=== PATIENT | male | born 1940 | race Caucasian/White ===

== ENCOUNTER → 2016-09-15 | Outpatient (CLI) | payer OTHER, MEDICARE ==
[2016-09-15 08:34] LABS: BASOPHILS # (AUTO) 0.02 10*3/UL; EOSINOPHILS # (AUTO) 0.12 10*3/UL; HEMATOCRIT 45.8 % (42.0-52.0); HEMOGLOBIN 15.2 g/dL (14.0-18.0); LYMPHOCYTES # (AUTO) 1.24 10*3/uL; MEAN CORPUSCULAR HEMOGLOBIN 33.6 PG (27-31); MEAN CORPUSCULAR HGB CONC 33.2 g/dL (33-37); MEAN CORPUSCULAR VOLUME 101.3 FL (80-90); MEAN PLATELET VOLUME 10.3 FL (7.4-12.2); MONOCYTES # (AUTO) 0.25 10*3/UL (0.3-0.8); MONOCYTES % (AUTO) 12.4 % (5-15); NEUTROPHILS # (AUTO) 0.36 10*3/UL; NEUTROPHILS % (AUTO) 17.9 % (50-80); RED BLOOD COUNT 4.52 10^6/uL (4.70-6.10)
[2016-09-15 08:46] LABS: PLATELET MORPHOLOGY COMMENT NORMAL MORPHOLOGY (NORM); RBC MORPHOLOGY COMMENT NORMAL MORPHOLOGY (NORM); WBC MORPHOLOGY COMMENT NORMAL MORPHOLOGY (NORM)
[2016-09-15 08:55] LABS: BUN/CREATININE RATIO 15.55 (6-20); CALCIUM 8.7 mg/dL (8.7-10.7); CHOL/HDL RATIO 3.6 RATIO (0-4.0); LDL CHOLESTEROL,CALCULATED 90.6 mg/dL; SERUM ALBUMIN 4.2 g/dL (3.5-4.8)
[2016-09-15 09:00] LABS: BILIRUBIN,URINE NEGATIVE (NEG); COLOR,URINE YELLOW; GLUCOSE, URINE (UA) NEGATIVE (NEG); NITRATE,URINE NEGATIVE (NEG); OCCULT BLOOD,URINE NEGATIVE (NEG); PH,URINE 7.5 (5.0-8.5); UROBILINOGEN,URINE 0.2 mg/dL (0.2)
[2016-09-15 09:03] LABS: CLARITY,URINE CLEAR (CLEAR); PROTEIN,URINE NEGATIVE (NEG); RBC,URINE 0 /hpf; URINE SAMPLE TYPE CLEAN CATCH URINE; WBC,URINE 0-1
[2016-09-15 09:04] LABS: SQUAMOUS EPITHELIAL CELL,UR RARE
[2016-09-15 09:13] LABS: VITAMIN D 25-HYDROXY 33.5 NG/ML (30-100)
== END ==
LOC: LAB 08:10
DX: I10 Essential (primary) hypertension (principal); C61 Malignant neoplasm of prostate; D72.820 Lymphocytosis (symptomatic); E55.9 Vitamin D deficiency, unspecified; Z13.6 Encounter for screening for cardiovascular disorders
CPT/HCPCS: 36415; 80053; 80061; 81001; 82306; 84153; 84443; 85025

== ENCOUNTER → 2016-09-16 | Outpatient (CLI) | payer OTHER, MEDICARE | LOC: MMPC 09:00 | DX: D72.820 Lymphocytosis (symptomatic) (principal); C61 Malignant neoplasm of prostate; E55.9 Vitamin D deficiency, unspecified; I10 Essential (primary) hypertension | CPT/HCPCS: 99213; G0463 ==

== ENCOUNTER → 2016-12-13 | Outpatient (CLI) | payer OTHER, MEDICARE | LOC: MMPC 11:11 | PROVIDERS: ATTEND Surgery | DX: K42.9 Umbilical hernia without obstruction or gangrene (principal) | CPT/HCPCS: 99213; G0463 ==

== ENCOUNTER 2016-12-15 10:07 | Day surgery (SDC) | payer OTHER, MEDICARE ==
[~2016-12-15 10:07] MED LIST: LIDOCAINE W/ SODIUM BICARB 0.5 ML SYR ONE; Lactated Ringers 1,000 ML PRIMARY IV ONE; MIDAZOLAM 5 MG/1 ML ONE; ceFAZolin Inj 2gm (Premix) 50 ML IV ONE; fentaNYL Inj 100 MCG/2 ML VIAL ONE
[2016-12-15] MEDS ORDERED: BUPivacaine Inj 0.5% PF (5mg/ml) 10ml vial ONE ×2 (11:43→12:10)
[2016-12-15] MEDS ORDERED: Lidocaine Inj 1% 20 ML ONE (11:43)
[2016-12-15] MEDS ORDERED: GLYCOPYRROLATE 0.2 MG/1 ML VIAL ONE (11:56)
[2016-12-15] MEDS ORDERED: KETOROLAC 30 MG/1 ML VIAL ONE (12:23)
[2016-12-15] MEDS ORDERED: BUPivacaine Liposome/PF (Exparel) Inj 20ml vial INFIL ONE (12:30)
[2016-12-15] MEDS ORDERED: NORMAL SALINE 10 ML SYRINGE FLUSH IVP PRN (12:41)
[2016-12-15] MEDS ORDERED: MORPHINE SULFATE 2 MG/1 ML IVP PRN (12:41)
[2016-12-15] MEDS ORDERED: KETOROLAC 15 MG/1 ML VIAL IVP ONE (12:41)
[2016-12-15] MEDS ORDERED: ONDANSETRON 4 MG/2 ML VIAL IVP PRN (12:41)
--- NOTE | 2016-12-15 12:41 | GEN.OPNOTE ---
Operative Note Surgery Date: 12/15/16 Preoperative Diagnosis: Umbilical hernia Postoperative Diagnosis: Umbilical hernia Procedure: Umbilical herniorrhaphy Surgeon: Bart Mahan MD Anesthesia Provider: Neyda Franks CRNA Anesthesia Type: Local, MAC Estimated Blood Loss (mL): 1 Fluids: 2 g of Ancef. Lactated Ringer's please see anesthesia notes in EMR Pathology: Nothing sent Indications: Symptomatic umbilical hernia Findings: Preperitoneal fat herniating through a small defect Operative Summary: Patient is brought in the operating room. Placed supine position. Given IV sedation. Prepped draped sterile fashion. Timeout performed per protocol. Infiltrated quarter percent Marcaine with epinephrine for pain control. A small incision was made below the umbilicus. Hemostased obtained electrocautery. The skin of the umbilicus was dissected off the fascia the umbilicus with electrocautery. The contents of the hernia reduced. I did excise the hernia sac. I freshened up the fascial edges with electrocautery. Defect a small left can be primarily closed with 2 simple interrupted sutures using 0 Prolene. Skin umbilicus was tacked down to the fascia using 2-0 Vicryl suture. Skin reapproximated using 4-0 Vicryl simple interrupted septic restitch. Steri-Strips applied sterile dressings applied. I did infiltrate proximally 10 mL of Exoprel into the surgical site for postoperative pain control. Patient transferred recovery room in stable condition
[2016-12-15 14:24] VITALS: TEMP 98.2
[2016-12-15 14:39] VITALS: RESP 14
== END 2016-12-15 14:15 | disposition home or self-care (01) ==
LOC: SDSC 10:07
PROVIDERS: ATTEND Surgery
DX: K42.9 Umbilical hernia without obstruction or gangrene (principal)
CPT/HCPCS: 49585; C9290; J0690; J1885; J2704; J3010; J2001; J2250; J3490; J7120

== ENCOUNTER → 2016-12-23 | Outpatient (CLI) | payer OTHER, MEDICARE | LOC: MMPC 11:11 | PROVIDERS: ATTEND Surgery | DX: K42.9 Umbilical hernia without obstruction or gangrene (principal) ==

== ENCOUNTER 2017-07-25 10:59 | Inpatient (IN) ==
--- NOTE | 2017-07-25 11:27 | PDOC ---
Abdomen/Flank HPI - General Chief Complaint: Abdomen Pain Stated Complaint: NO BM FOR TWO DAYS Date Seen by Provider: 07/25/17 Time Seen by Provider: 11:10 Source: POSITIVE: Patient Exam Limitations: POSITIVE: No limitations Nurse's Notes Reviewed & Considered: Yes - History of Present Illness Initial Comments: This is a well-developed, well-nourished, fit-appearing 77-year-old male with complaints of constipation. Patient has three-day history of no bowel movement. He contacted his primary care provider today who directed him to come to the emergency department because of his complaints of constipation and pressure in his pelvis. Patient states he has had no bowel movement for 3 days but has had mucus being passed. He denies any blood in his stools, no recent changes in his bowel habitus. At this time he denies any fever chills or sweats , no headache, no sore throat, no chest pain or shortness of breath, no nausea vomiting or diarrhea, no hematuria or dysuria, no rashes, no ataxia or focal localizing neurological deficits. Body Location Affected: REPORTS: Abdomen Timing: REPORTS: Gradual Duration: <1 week Severity: Mild Quality: REPORTS: Fullness, "Pain", Pressure Abdominal Pain Onset Location: REPORTS: Other (Perianal and pelvic pressure) Abdominal Pain Radiation: REPORTS: No radiation Context: REPORTS: None Modifying Factors: improves with: Nothing Associated Symptoms: REPORTS: Constipation Similar Symptoms Previously: No Recent Care Received: REPORTS: Denies Any Prior Injuries Related to Current Complaint?: No - Patient Home Medications Home Medications: Home Medications Calcium Carbonate/Vitamin D3 [Calcarb 600 with Vit D Tab] 1 tab PO QD #30 Cyanocobalamin (Vitamin B-12) [B-12] 1 tab SL DAILY tab 05/10/13 Psyllium Seed [Metamucil] 2 tsp PO DAILY sc 05/10/13 Cholecalciferol (Vitamin D3) [Vitamin D3] 1 tab PO QD #30 tab 11/25/14 Folic Acid 1 tab PO DAILY tab 12/23/16 tamsulosin 0.4 mg capsule 0.4 mg PO QDAY #90 cap 04/11/17 - Patient Allergies Allergies/Adverse Reactions: Allergies 3 Allergy/AdvReac Type Severity Reaction Status Date / Time hydrocodone Allergy Intermediate NAUSEA Verified 07/25/17 11:10 Past Medical History - heen Additional HEENT History: DETACHED RETINA Cardiovascular History: Arrhythmia Additional Cardiovasular History: HX OF PVC'S none for months Respiratory History: Denies History Gastrointestinal History: Hiatal Hernia Additional Gastrointestinal History: ADENOMATIOUS COLON POLYP Genitourinary History: Denies History Endocrine History: Denies History Musculoskeletal History: Arthritis Neurological History: Denies History Blood Disorders: Denies History Psychiatric History: Denies History History of Sexually Transmitted Diseases: No History of MDRO: No History of Other Communicable Diseases: Yes (SCARLET FEVER) Alcohol Use: Occasionally In the Past 12 Months, Have Used or Abuse Any Substance: None Previous Surgical History: Yes Type / Date of Surgery: BONE MARROW BX/ BILAT CATARACT EXT/ COLONOSCOPY X 2/ I& D CYST ON BACK/ MACULAR DETACHMENT/ TONSILLECTMY Anesthesia Reactions: No Malignant Hyperthermia: No Significant Family History: Cancer Additional Family History: MOTHER-CA DEMENTIA ROS Constitution: REPORTS: Denies Symptoms Cardiovascular: REPORTS: Denies Cardiac Symptoms Respiratory: REPORTS: Denies Resp Symptoms Neurological: REPORTS: Denies Neuro Symptoms Gastrointestinal: REPORTS: Abdominal Pain, Constipation Endocrine: REPORTS: Denies Symptoms Musculoskeletal: REPORTS: Denies MS Symptoms Genitourinary: REPORTS: Denies Symptoms Eyes: REPORTS: Denies Symptoms ENT: REPORTS: Denies Symptoms Skin: REPORTS: Denies Skin Symptoms Lympathic: REPORTS: Denies Lympathic Symptoms Immunologic: POSITIVE: Denies Symptoms Psychiatric: POSITIVE: Denies Psych Symptoms Abdominal/Flank Pain PE - General Appearance General Appearance: POSITIVE: Alert, Cooperative, No Acute Distress, No Evidence of Trauma - HEENT HEENT: POSITIVE: Head Inspection Nml, Eyes Inspection Nml, Ears Inspection Nml, Nose Inspection Nml, Oral/Dental Inspect. Nml, Pharynx Inspect. Nml, PERRL, EOMI - Neck Neck: POSITIVE: Normal Inspection, No Apparent Injury - Respiratory Respiratory: POSITIVE: No Respiratory Distress, Breath Sounds Normal, Chest Non- Tender - Cardiovascular Cardiovascular: POSITIVE: Regular Rate and Rhythm, Heart Sounds Normal, Strong Pulses Peripheral Pulses: Radial (R): 4+ - Chest Chest: POSITIVE: Non Tender - Abdomen Abdomen: Soft: (All Quadrants), Normal Bowel Sounds: (All Quadrants), Denies Tenderness: (RUQ), (LUQ), No Splenomegaly: (All Quadrants), No Hepatomegaly: ( All Quadrants), No Guarding: (LUQ), (RUQ), No Rebound: (All Quadrants), No Palpable Pulse: (All Quadrants), No Palpabale Mass: (All Quadrants), No Distention: (All Quadrants), No Rigidity: (All Quadrants), Tenderness Noted: ( RLQ), (LLQ), Guarding: (RLQ), (LLQ) - Back Back: POSITIVE: Normal Inspection - Skin Skin: POSITIVE: Intact, Normal For Race, Warm, Dry, No Rash - Extremities Extremity: Non-Tender: (All Extremities), Normal ROM: (All Extremities), Normal Inspection: (All Extremities), Pelvis Stable: (All Extremities) - Neurological Neurological: POSITIVE: Affect Apporpriate, Oriented X3, Motor Normal, Sensation Normal - Psychological Psychiatric: POSITIVE: Affect Appropriate, Mood Appropriate Abdomen Progress - Results Reviewed by me Xrays/CTs/US Reviewed by me: Yes Discussed with Radiologist: Yes Lab Results Reviewed by Me: Yes CBC and BMP: 07/25/17 11:47 07/25/17 11:47 - Consult Consult (If Yes, Name of Consulting MD & Time Called): Yes (Dr. Quan Olmedo,1300hrs , Dr. Vlad Lynn, 1305 hrs) Consulting MD will see pt:: POSITIVE: [facility] Admit Counseled: POSITIVE: Patient, RE: Lab Results, RE: Radiology Results, RE: DX, RE : Need for F/U Patient Care Time - Estimated PCT Patient Care Time (In Minutes): 30 Vital Signs - VS Reviewed Vital Signs Reviewed: Yes Discharge Clinical Impression: Diverticulitis of large intestine with perforation and abscess Discharge Disposition: Admit to Inpatient Condition: Stable Follow Up With: SHIVA ALONSO [Primary Care Provider] - Date Decision to Admit to Inpatient: 07/25/17 Time Decision to Admit to Inpatient: 13:09
[2017-07-25] MEDS ORDERED: NORMAL SALINE 10 ML SYRINGE FLUSH IVP PRN (11:30)
[2017-07-25 11:52] LABS: BILIRUBIN,URINE SMALL (NEG); CLARITY,URINE CLEAR (CLEAR); COLOR,URINE YELLOW (Y); GLUCOSE, URINE (UA) NEGATIVE (NEG); OCCULT BLOOD,URINE Trace-intact (NEG); PH,URINE 5.5 (5.0-8.5); PROTEIN,URINE 30 mg/dl (NEG); UROBILINOGEN,URINE 0.2 EU/dL (0.2)
[2017-07-25 11:57] LABS: BASOPHILS # (AUTO) 0.01 10*3/UL; BASOPHILS % (AUTO) 0.1 % (0-1); EOSINOPHILS # (AUTO) 0.04 10*3/UL; EOSINOPHILS % (AUTO) 0.3 % (0-8); Hematocrit [HCT] 46.1 % (42.0-52.0); Hemoglobin [HGB] 15.9 g/dL (14.0-18.0); LYMPHOCYTES # (AUTO) 0.61 10*3/uL; MEAN CORPUSCULAR HEMOGLOBIN 34.6 PG (27-31); MEAN CORPUSCULAR HGB CONC 34.5 g/dL (33-37); MEAN CORPUSCULAR VOLUME 100.2 FL (80-90); MEAN PLATELET VOLUME 11.4 FL (7.4-12.2); MONOCYTES # (AUTO) 0.91 10*3/UL (0.3-0.8); MONOCYTES % (AUTO) 7.6 % (5-15); NEUTROPHILS % (AUTO) 85.7 % (50-80)
[2017-07-25 11:59] LABS: BACTERIA,URINE RARE; RBC,URINE 0-1 /hpf; SQUAMOUS EPITHELIAL CELL,UR RARE; URINE SAMPLE TYPE CLEAN CATCH URINE
[2017-07-25 12:01] LABS: BLOOD UREA NITROGEN 14 mg/dL (7-22); SERUM ALBUMIN 4.4 g/dL (3.5-4.8)
[2017-07-25 12:03] LABS: PLATELET MORPHOLOGY COMMENT NORMAL MORPHOLOGY (NORM); RBC MORPHOLOGY COMMENT NORMAL MORPHOLOGY (NORM); WBC MORPHOLOGY COMMENT NORMAL MORPHOLOGY (NORM)
--- NOTE | 2017-07-25 12:54 | DI ---
CT Abdomen/Pelvis W Contrast,07/25/2017 11:23 AM: Clinical History: Abdominal pain and constipation. Previous Exam: None at this facility. Findings: Multiple helically acquired CT images are obtained through the abdomen and pelvis following the intra venous administration of contrast. There are foci of air density within the deep pelvis adjacent to the sigmoid colon. There is a large amount of fat stranding within the perirectal fat in the distal sigmoid colon. Multiple colonic diverticula are noted. There is no evidence of free air nor free fluid. There is some thickening of the urinary bladder wall with decompression. Multiple brachii therapy seeds are seen within the prostate. The appendix is normal. Degenerative changes of the lumbar spine are noted. Facet hypertrophy is seen. There is a subcentimeter hypodensity within the liver too small to characterize. The gallbladder is u nremarkable. The spleen, adrenals, pancreas and kidneys are unremarkable. Impression: Contained perforation of acute sigmoid diverticulitis.
[2017-07-25] MEDS ORDERED: Piperacillin/Tazobactam Inj 3.375 GM in Sodium Chloride 0.9% 100 ML IV ONE (13:07)
[2017-07-25] MEDS ORDERED: HYDROmorphone 2 MG/1 ML IVP PRN (13:41)
[2017-07-25] MEDS ORDERED: LIDOCAINE HCL 2 % 10 ML JELLY URO-JECT TOPICAL PRN (13:41)
[2017-07-25] MEDS ORDERED: LIDOCAINE W/ SODIUM BICARB 0.5 ML SYR SUBD PRN (13:41)
[2017-07-25] MEDS ORDERED: ONDANSETRON 4 MG/2 ML VIAL IVP PRN (13:41)
[2017-07-25] MEDS ORDERED: Acetaminophen 1000mg Inj 1,000 MG/100 ML VIAL IV PRN (13:45)
--- NOTE | 2017-07-25 14:40 | PDOC ---
HPI - History of Present Illness History of Present Illness: This very nice 77-year-old gentleman with past medical history significant for BPH patient has had no bowel movements and constipation for the last 3 days he called his primary care physician who told him to go to the emergency room. He has no changes in bowel habits no diarrhea or blood no fever or chills or sweats no chest pain nausea or vomiting. On CT scan he had a bowel perforation which is contained in DrTimothy Olmedo was consulted from the ER who recommended for the hospitalist to admit the patient and he would be on consult patient already received the Zosyn in the ER. I have kept the patient nothing by mouth until further notice orders from the surgeon no anticoagulation until further orders from the surgeon and Tylenol for pain IV Past Medical History Medical History: BPH history of PVCs Surgical History: BONE MARROW BX/ BILAT CATARACT EXT/ COLONOSCOPY X 2/ I&D CYST ON BACK/ MACULAR DETACHMENT/ TONSILLECTMY, adenomatous polyps Tobacco Use: Never Smoker In the Past 12 Months, Have Used or Abuse Any of the Following Substance: None Medication / Allergies Home Medications: Home Medications 3 Medication Instructions Recorded Confirmed Type Calcium Carbonate/Vitamin D3 1 tab PO QD #30 02/08/11 07/25/17 History [Calcarb 600 with Vit D Tab] Cyanocobalamin (Vitamin B-12) 1 tab SL DAILY tab 05/10/13 07/25/17 History [B-12] Psyllium Seed [Metamucil] 2 tsp PO DAILY sc 05/10/13 07/25/17 History Cholecalciferol (Vitamin D3) 1 tab PO QD #30 tab 11/25/14 07/25/17 History [Vitamin D3] Folic Acid 1 tab PO DAILY tab 12/23/16 07/25/17 History tamsulosin 0.4 mg capsule 0.4 mg PO QDAY #90 cap 04/11/17 07/25/17 Rx Allergies/Adverse Reactions: Allergies 3 Allergy/AdvReac Type Severity Reaction Status Date / Time hydrocodone Allergy Intermediate NAUSEA Verified 07/25/17 11:10 Review of Systems - Review of Systems All Systems: Reviewed & No Additional Complaints Except as Stated - Cardiovascular Cardiovascular: DENIES: Negative System Review, Chest Pain, Edema, Syncope, Palpitations, Orthopnea, Paroxysmal Nocturnal Dyspnea, Other, See HPI - Gastrointestinal Gastrointestinal / Abdominal: REPORTS: Constipation. DENIES: Nausea, Vomiting, Abdominal Pain, Bloody Stool, Melena, Bright Red Blood per Rectum - Genitourinary Genitourinary: DENIES: Negative System Review, Pain, Burning, Hematuria, Incontinence, Urgency, Hesitant Stream, Decreased Stream, Nocutria, Discharge, Sexual Dysfunction, Other, See HPI Exam - Vitals Vital Signs: Vital Signs Oxygen Delivery Method Room Air Height 5 ft 7 in Weight 158 lb - General General Appearance: No Acute Distress, Cooperative - Head Head Exam: Normal Inspection, Normocephalic, Atraumatic - Eye Eye Exam: POSITIVE: Normal Appearance, PERRL, EOMI, No Scleral Icterus - Neck Neck Exam: Normal Inspection, Full ROM, No Tenderness, No Lymphadenopathy, No Thyromegaly, JVP is not Raised - Respiratory Respiratory Exam: POSITIVE: Clear to Auscultation - Bilaterally, Breathing Non Labored, Normal To Percussion, Normal to Percussion and Palpation - Cardiovascular Cardiovascular Exam: POSITIVE: RRR, No Murmur, No Clicks, No Gallops, No Rubs, PMI Non-Displaced - GI/Abdominal GI/Abdominal Exam: POSITIVE: Normal Bowel Sounds, Non Tender, Non Distended, Soft, No Masses, No Hepatomegaly, No Splenomegaly, No Organomegaly - Extremities Extremities Exam: POSITIVE: Normal Inspection, Full ROM, Normal Capillary Refill , No Clubbing Present, No Edema Present, No Cyanosis Present, Negative Trish's sign, Dosalis Pedis Pulses - Stong & Regular Results - Labs CBC and BMP: 07/25/17 11:47 07/25/17 11:47 Assessment and Plan - Patient Problems (1) BPH (benign prostatic hyperplasia) Current Visit: Yes Status: Acute Comment: At present time I have kept the patient nothing by mouth no anticoagulation or NSAIDs IV Tylenol for pain Code(s): N40.0 - Benign prostatic hyperplasia without lower urinary tract symptoms (2) Diverticulitis of large intestine with perforation and abscess Current Visit: Yes Status: Acute Code(s): K57.20 - Diverticulitis of large intestine with perforation and abscess without bleeding
[2017-07-25] MEDS: 1/2NS + 20mEq KCL 1,000 ML PRIMARY IV SCH ×2 (14:44→23:55)
--- NOTE | 2017-07-25 15:14 | CONSULT ---
Consult Note - Consult Consult Date: 07/25/17 Reason for Consult: PreOp Consulation : General Surgery Requesting Physician: Dr. Wong. Dr. Melgar's Primary Care Provider: Chepe Paulino MD - History of Present Illness History of Present Illness: The patient is a 77-year-old male I'm asked to see for acute diverticulitis. He reports he noticed problems starting on Tuesday. He was unable to have a bowel movement. Tuesday he developed some lower abdominal pain and was still unable to have a bowel movement. He did pass some gas. Things progressed yesterday as far as his discomfort and he felt bloated. His appetite decreased. He still unable to pass any solid stool. This morning he brought his in for a procedure and decided he needed to go to the emergency room for lower abdominal pain and inability to have a bowel movement. He has continued to pass gas throughout. Workup in the emergency room revealed a low-grade white count at just under 12, 000. CT scan shows acute diverticulitis of the distal sigmoid colon. There was a few extra colonic air bubbles. This is consistent with a contained perforation of his sigmoid colon secondary to acute diverticulitis. There is no free air. There is no evidence of an abscess. Patient has never had diverticulitis. His last colonoscopy was in November 2015, and was done by myself. Several polyps were removed. One was hyperplastic and one was a tubular adenoma. It was recommended he undergo follow-up colonoscopy in 5 years time. I did not mention any significant diverticulosis. Patient denies fever or chills. He denies nausea or vomiting. He denies anal pain. Review of Systems - Gastrointestinal Gastrointestinal / Abdominal: REPORTS: Constipation, Abdominal Pain, Poor Appetite, See HPI Past Medical History Medical History: #1 history of PVCs. #2 carcinoma of the prostate. #3 benign hypertension. #4 history of colon polyps. #5 degenerative arthritis. #6 history of detached retina. #7 hiatal hernia. #8 history of scarlet fever Surgical History: History of left total knee. Bone marrow biopsy. Incision and drainage of a cyst on his back. Macular detachment procedure. Status post colonoscopy 2. Cataract extraction. Tonsillectomy. Tobacco Use: Never Smoker In the Past 12 Months, Have Used or Abuse Any of the Following Substance: None Medication / Allergies Home Medications: Home Medications 3 Medication Instructions Recorded Confirmed Type Calcium Carbonate/Vitamin D3 1 tab PO QD #30 02/08/11 07/25/17 History [Calcarb 600 with Vit D Tab] Cyanocobalamin (Vitamin B-12) 1 tab SL DAILY tab 05/10/13 07/25/17 History [B-12] Psyllium Seed [Metamucil] 2 tsp PO DAILY sc 05/10/13 07/25/17 History Cholecalciferol (Vitamin D3) 1 tab PO QD #30 tab 11/25/14 07/25/17 History [Vitamin D3] Folic Acid 1 tab PO DAILY tab 12/23/16 07/25/17 History tamsulosin 0.4 mg capsule 0.4 mg PO QDAY #90 cap 04/11/17 07/25/17 Rx Allergies/Adverse Reactions: Allergies 3 Allergy/AdvReac Type Severity Reaction Status Date / Time hydrocodone Allergy Intermediate NAUSEA Verified 07/25/17 11:10 Results - Labs CBC and BMP: 07/25/17 11:47 07/25/17 11:47 - Imaging Status: Image Reviewed by Me (And discussed with the radiologist.), Report Reviewed by Me Exam - Vitals Vital Signs: Vital Signs Temperature 98.0 F Temperature Source Temporal Artery Scan Pulse Rate 82 Respiratory Rate 15 Blood Pressure 133/80 Pulse Ox 92 Oxygen Delivery Method Room Air Height 5 ft 7 in Weight 158 lb - General General Appearance: No Acute Distress, Cooperative - Respiratory Respiratory Exam: POSITIVE: Clear to Auscultation - Bilaterally, Breathing Non Labored - Cardiovascular Cardiovascular Exam: POSITIVE: No Murmur, Irregular Rhythm (Irregular rhythm, bigeminal.) - GI/Abdominal GI/Abdominal Exam: POSITIVE: Normal Bowel Sounds, Non Distended, Soft Additional GI/Abdominal Exam Details: Suprapubic and left lower quadrant tenderness. No signs of peritonitis. - Rectal Rectal Exam: POSITIVE: Deferred - Neurological Neurological Exam: POSITIVE: Alert, Oriented x 3 - Psychiatric Psychiatric Exam: POSITIVE: Normal Affect, Normal Mood Assessment and Plan - Patient Problems (1) Acute diverticulitis Current Visit: Yes Status: Acute Priority: High Onset Date: ~07/22/17 Comment: Findings consistent with acute diverticulitis with contained perforation. There is extra colonic air in the pelvis. There is no free air or abscess. Typically this would be treated with 72 hours of IV antibiotics followed by a full 2 weeks of oral antibiotics as an outpatient. If he fails to improve I will recommend follow-up CT scan. Would not do this for at least 72 hours. As he has had a perforation the recommendation would be for an elective sigmoid colectomy when the acute infection and inflammation resolves, in approximately 6-8 weeks, post resolution of his acute diverticulitis. I discussed the above with the patient as well as Dr. Tao. We'll proceed as outlined. I will follow patient with you. Probably no reason to repeat a colonoscopy as his last one was less than 2 years ago. We will follow his clinical course before making a final decision. I started him on clear liquids. I have started Invanz. Code(s): K57.92 - Diverticulitis of intestine, part unspecified, without perforation or abscess without bleeding
[2017-07-25] MEDS: Ertapenem Inj 1 GM in Sodium Chloride 0.9% 100 ML IV SCH (16:01)
[2017-07-25] MEDS: DOCUSATE 100 MG CAPSULE PO SCH (20:09)
[2017-07-25] MEDS: TAMSULOSIN 0.4 MG CAPSULE PO SCH (20:09)
[2017-07-26 05:01] LABS: BASOPHILS # (AUTO) 0.02 10*3/UL; BASOPHILS % (AUTO) 0.2 % (0-1); EOSINOPHILS # (AUTO) 0.05 10*3/UL; EOSINOPHILS % (AUTO) 0.5 % (0-8); Hematocrit [HCT] 39.7 % (42.0-52.0); Hemoglobin [HGB] 13.3 g/dL (14.0-18.0); LYMPHOCYTES # (AUTO) 0.94 10*3/uL; MEAN CORPUSCULAR HEMOGLOBIN 33.8 PG (27-31); MEAN CORPUSCULAR HGB CONC 33.5 g/dL (33-37); MEAN PLATELET VOLUME 11.6 FL (7.4-12.2); MONOCYTES # (AUTO) 1.02 10*3/UL (0.3-0.8); NEUTROPHILS # (AUTO) 7.14 10*3/UL; RED BLOOD COUNT 3.93 10^6/uL (4.70-6.10)
[2017-07-26 05:22] LABS: BLOOD UREA NITROGEN 11 mg/dL (7-22); BUN/CREATININE RATIO 13.75 (6-20); LIPASE 31 IU/L (23-300); SERUM ALBUMIN 3.1 g/dL (3.5-4.8)
[2017-07-26 05:33] LABS: PLATELET MORPHOLOGY COMMENT NORMAL MORPHOLOGY (NORM); RBC MORPHOLOGY COMMENT NORMAL MORPHOLOGY (NORM); WBC MORPHOLOGY COMMENT NORMAL MORPHOLOGY (NORM)
[2017-07-26] MEDS: DOCUSATE 100 MG CAPSULE PO SCH ×2 (08:24→20:07)
[2017-07-26] MEDS: 1/2NS + 20mEq KCL 1,000 ML PRIMARY IV SCH ×3 (08:24→16:21)
--- NOTE | 2017-07-26 09:10 | PDOC(PROG) ---
Date and Time of Service: 07/26/2017 9 AM Interval History: No real change. Passing gas. No bowel movement. Does not feel more bloated. Feels some abdominal rumbling. He is voiding. He is ambulating. No significant abdominal pain. White count has decreased to normal. Hemoglobin and hematocrit down consistent with hydration. Objective : Data - Labs CBC and BMP: 07/26/17 04:40 07/26/17 04:40 - Vital Signs Vital Signs and I&O: Vital Signs - Last Taken Temperature 97.4 F 07/26/17 07:50 Pulse Rate 60 07/26/17 07:50 Respiratory Rate 18 07/26/17 07:50 Blood Pressure 120/69 07/26/17 07:50 Pulse Ox 94 07/26/17 07:50 Intake and Output (24hr x 4 totals) 07/24/17 07/25/17 07/26/17 07/27/17 05:59 05:59 05:59 05:59 Intake Total 2574 / 2574 Output Total 725 / 725 50 / 50 Balance 1849 / 1849 -50 / -50 Objective : Exam - General General Appearance: No Acute Distress, Cooperative - Respiratory Respiratory Exam: Clear to Auscultation - Bilaterally, Breathing Non Labored - Cardiovascular Cardiovascular Exam: RRR, No Murmur - GI/Abdominal GI/Abdominal Exam: Normal Bowel Sounds, Non Distended, Soft Additional GI/Abdominal Exam Details: Minimal suprapubic and left lower quadrant tenderness. - Rectal Rectal Exam: Deferred - Neurological Neurological Exam: Alert, Oriented x 3 - Psychiatric Psychiatric Exam: Normal Affect, Normal Mood Assessment and Plan - Patient Problems (1) Acute diverticulitis Current Visit: Yes Status: Acute Priority: High Onset Date: ~07/22/17 Comment: Doing well. No signs of deterioration. Still no stool. We'll start MiraLAX. Continue antibiotics and follow labs. If in 72 hours he is showing no signs of improvement may need to consider follow-up CT with rectal contrast versus flexible sigmoidoscopy. Does not appear to be totally obstructed. Continue present management. Discussed with the patient. Code(s): K57.92 - Diverticulitis of intestine, part unspecified, without perforation or abscess without bleeding
[2017-07-26] MEDS: POLYETHYLENE GLYCOL 3350 17 GM POWDER PO SCH (09:30)
--- NOTE | 2017-07-26 14:02 | PDOC(PROG) ---
Date and Time of Service: 07/26/2017, 1359 Interval History: No complaints of chest pain, shortness breath, nausea or vomiting. States his abdomen feels very uncomfortable, but not worse than it was yesterday. Tolerating Invanz therapy. Quite ambulatory and I noticed he was walking in the aviles. Objective : Data - Labs CBC and BMP: 07/26/17 04:40 07/26/17 04:40 Objective : Exam - General General Appearance: No Acute Distress, Cooperative Additional General Exam Details: Vital Signs - Last Taken Temperature 97.5 F 07/26/17 11:30 Pulse Rate 83 07/26/17 11:30 Respiratory Rate 18 07/26/17 11:30 Blood Pressure 118/82 07/26/17 11:30 Pulse Ox 94 07/26/17 11:30 Selected Entries 07/26/17 00:12 Temperature 99.0 F - Eye Eye Exam: No Scleral Icterus - ENT ENT Exam: Mucous Membranes Moist - Respiratory Respiratory Exam: Clear to Auscultation - Bilaterally, Breathing Non Labored - Cardiovascular Cardiovascular Exam: RRR, No Murmur, No Clicks, No Gallops, No Rubs, No JVD - GI/Abdominal GI/Abdominal Exam: Normal Bowel Sounds, Non Tender, Non Distended, Soft - Extremities Extremities Exam: No Clubbing Present, No Edema Present, No Cyanosis Present - Neurological Neurological Exam: Alert, Oriented x 3, No Facial Droop, Speech Intact / Clear, Moves All Extremities Equally - Psychiatric Psychiatric Exam: Normal Affect, Normal Mood Assessment and Plan - Patient Problems (1) Diverticulitis of large intestine with perforation and abscess Current Visit: Yes Status: Acute Code(s): K57.20 - Diverticulitis of large intestine with perforation and abscess without bleeding Qualifiers: Diverticulitis bleeding: without bleeding Qualified Code(s): K57.20 - Diverticulitis of large intestine with perforation and abscess without bleeding (2) BPH (benign prostatic hyperplasia) Current Visit: Yes Status: Acute Code(s): N40.0 - Benign prostatic hyperplasia without lower urinary tract symptoms Qualifiers: Lower urinary tract symptom presence: unspecified whether lower urinary tract symptoms present Qualified Code(s): N40.0 - Benign prostatic hyperplasia without lower urinary tract symptoms (3) Anemia, macrocytic Current Visit: Yes Status: Chronic Code(s): D53.9 - Nutritional anemia, unspecified (4) Vitamin D deficiency Current Visit: Yes Status: Chronic Code(s): E55.9 - Vitamin D deficiency, unspecified - Assessment / Plan Additional Assessment/Plan Details: Limited ahead and check a B12 level and folate level in the morning. We can add these onto already ordered visit metabolic panel for electrolyte monitoring and CBC. I will try to get a copy of the bone marrow biopsy from oncologist. It is not clear but he may have monoclonal antibody of undetermined significance. I think if the patient is doing well on Invanz tomorrow, patient's white blood cell count continues to come down, no development of pain, hopefully we can consider working on discharge home even if it means a dose of IV antibiotics prior to going on orals. I think he does need a colonoscopy outpatient in the future and I agree with Dr. Olmedo, in 6-8 weeks. At that time the patient can plan on whether or not to proceed with an elective hemicolectomy. Discussed with the patient and his and they agree with the plan.
[2017-07-26] MEDS: Ertapenem Inj 1 GM in Sodium Chloride 0.9% 100 ML IV SCH (15:52)
[2017-07-26] MEDS: NORMAL SALINE 10 ML SYRINGE FLUSH IVP PRN (15:53)
[2017-07-26] MEDS: TAMSULOSIN 0.4 MG CAPSULE PO SCH (20:07)
[2017-07-27 05:46] LABS: Hematocrit [HCT] 39.9 % (42.0-52.0); Hemoglobin [HGB] 13.1 g/dL (14.0-18.0); MEAN CORPUSCULAR HEMOGLOBIN 33.3 PG (27-31); MEAN CORPUSCULAR HGB CONC 32.8 g/dL (33-37); MEAN CORPUSCULAR VOLUME 101.5 FL (80-90); MEAN PLATELET VOLUME 11.2 FL (7.4-12.2); RED BLOOD COUNT 3.93 10^6/uL (4.70-6.10)
[2017-07-27 05:57] LABS: BLOOD UREA NITROGEN 7 mg/dL (7-22); BUN/CREATININE RATIO 8.75 (6-20)
[2017-07-27 06:34] LABS: BAND NEUTROPHILS % 0 % (0-10); BASOPHILS % (MANUAL) 1 % (0-1); EOSINOPHILS % (MANUAL) 2 % (0-8); MONOCYTES % (MANUAL) 4 % (0-12); NEUTROPHILS % (MANUAL) 55 % (50-80); PLATELET MORPHOLOGY COMMENT NORMAL MORPHOLOGY (NORM); RBC MORPHOLOGY COMMENT NORMAL MORPHOLOGY (NORM); WBC MORPHOLOGY COMMENT NORMAL MORPHOLOGY (NORM)
[2017-07-27] MEDS: DOCUSATE 100 MG CAPSULE PO SCH (08:33)
[2017-07-27] MEDS: POLYETHYLENE GLYCOL 3350 17 GM POWDER PO SCH (08:33)
[2017-07-27 12:46] VITALS: BP 147/74; RESP 18; TEMP 97.3; O2SAT 94
--- NOTE | 2017-07-27 14:14 | DCSUMMARY ---
Hospitalization Summary Admit Date: 07/25/2017 Discharge Date: 07/27/17 Primary Diagnosis:: diverticulitis with small contained perforation Hospital Course: This very pleasant 77-year-old male who came in with abdominal pressure, was found to have diverticulitis with a small perforation that appeared contained. Surgery was consulted and felt that 3 days of Invanz therapy without any worsening pain and conservative management with outpatient antibiotics, follow- up colonoscopy and possible elective hemicolectomy would be the best management course. We kept the patient on Invanz here. He did very well, has pressure in his abdomen improved, and he had 2 bowel movements on the day of discharge that were normal and did not have any blood and did not appear black or tarry. His pressure has improved. His white blood cell count improved during the hospital stay. His other medical issues remained stable through the hospital stay. 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 This was not an issue here during the hospital stay. Today, no completes of chest pain, shortness breath, nausea or vomiting. Having normal bowel movements, abdominal pressure has subsided. Assessment and Plan: 1. As per discharge assessments noted 2. Disposition: Patient is discharged home. 3. Condition on discharge, stable and improved. 4. Diet: regular diet, but I advised avoidance of nuts, seeds, and popcorn. Advised increased intake of fiber. 5. Activities: resume normal activities 6. Follow-Up: 1. See Dr. Maharaj in 2 weeks to recheck diverticulitis 2. 7. Medications at the Time of Discharge: Home Medications 3 Medication Instructions Recorded Confirmed Type Calcium Carbonate/Vitamin D3 1 tab PO QD #30 02/08/11 07/25/17 History [Calcarb 600 with Vit D Tab] Cyanocobalamin (Vitamin B-12) 1 tab SL DAILY tab 05/10/13 07/25/17 History [B-12] Psyllium Seed [Metamucil] 2 tsp PO DAILY sc 05/10/13 07/25/17 History Cholecalciferol (Vitamin D3) 1 tab PO QD #30 tab 11/25/14 07/25/17 History [Vitamin D3] Folic Acid 1 tab PO DAILY tab 12/23/16 07/25/17 History tamsulosin 0.4 mg capsule 0.4 mg PO QDAY #90 cap 04/11/17 07/25/17 Rx Amox Tr/Potassium Clavulanate 1 ea PO BID #28 tab 07/27/17 Rx [Augmentin 875-125 Tablet] 8. Time, care, counseling and coordination of care for this discharge is greater than 30 minutes. Exam - Vitals Vital Signs: Vital Signs Temperature 97.3 F Temperature Source Temporal Artery Scan Pulse Rate [Apical] 78 Pulse Rate [Pulse Oximeter] 76 Pulse Rate 82 Respiratory Rate 18 Blood Pressure [Left Arm] 147/74 Blood Pressure 133/80 Pulse Ox 94 Oxygen Delivery Method Room Air Height 5 ft 7 in Weight 159 lb 9.6 oz - General General Appearance: No Acute Distress, Cooperative - Eye Eye Exam: POSITIVE: No Scleral Icterus - ENT ENT Exam: POSITIVE: Mucous Membranes Moist - Respiratory Respiratory Exam: POSITIVE: Clear to Auscultation - Bilaterally, Breathing Non Labored - Cardiovascular Cardiovascular Exam: POSITIVE: RRR, No Murmur, No Clicks, No Gallops, No Rubs, No JVD - GI/Abdominal GI/Abdominal Exam: POSITIVE: Normal Bowel Sounds, Non Tender, Non Distended, Soft - Extremities Extremities Exam: POSITIVE: No Clubbing Present, No Edema Present, No Cyanosis Present - Neurological Neurological Exam: POSITIVE: Alert, Oriented x 3, Normal Gait, No Facial Droop, Speech Intact / Clear, Moves All Extremities Equally Data Peritnent Studies: Laboratory Results 07/27/17 07/27/17 Range/Units 05:30 05:30 WBC 5.58 (4.8-10.8) 10^3/uL RBC 3.93 L (4.70-6.10) 10^6/uL Hgb 13.1 L (14.0-18.0) g/dL Hct 39.9 L (42.0-52.0) % MCV 101.5 H (80-90) FL MCH 33.3 H (27-31) PG MCHC 32.8 L (33-37) g/dL RDW Std Deviation 49.2 (39-50) fL RDW Coeff of Remi 13.3 (11.5-14.5) % Plt Count 104 L (140-350) 10*3/uL MPV 11.2 (7.4-12.2) FL Neutrophils % (Manual) 55 (50-80) % Band Neutrophils % 0 (0-10) % Lymphocytes % (Manual) 38 (10-50) % Monocytes % (Manual) 4 (0-12) % Eosinophils % (Manual) 2 (0-8) % Basophils % (Manual) 1 (0-1) % Metamyelocytes % Not Reportable Myelocytes % Not Reportable Promyelocytes % Not Reportable Blast Cells Not Reportable WBC Morphology Comment Normal morphology (NORM) Plt Morphology Comment Normal morphology (NORM) RBC Morph Comment Normal morphology (NORM) Sodium 140 (135-145) meq/L Potassium 4.0 (3.8-5.2) meq/L Chloride 107 (98-112) meq/L Carbon Dioxide 25 (23-33) meq/L Anion Gap 8 (5-20) BUN 7 (7-22) mg/dL Creatinine 0.8 (0.70-1.50) mg/dL BUN/Creatinine Ratio 8.75 (6-20) Glucose 90 (78-110) mg/dL Calculated Osmolality 287.0 (267-292) mOsm/kg Calcium 8.2 L (8.7-10.7) mg/dL [address] [facility] [place] [address] PH: DD: [phone] FAX: [phone] ~DIAGNOSTIC IMAGING REPORT~ Patient: Jeovany Lyon : 1940 Sex: M Age: 77 Exam Name: CT Abdomen/Pelvis W Contrast Exam Date: 07/25/17 Report # : [id number] CPT Code: 71012 EMR/MR #: [id number] Ordering: Thony Wong Admiting: Primary: Chepe Paulino MD Attending: Signed CT Abdomen/Pelvis W Contrast,07/25/2017 11:23 AM: Clinical History: Abdominal pain and constipation. Previous Exam: None at this facility. Findings: Multiple helically acquired CT images are obtained through the abdomen and pelvis following the intravenous administration of contrast. There are foci of air density within the deep pelvis adjacent to the sigmoid colon. There is a large amount of fat stranding within the perirectal fat in the distal sigmoid colon. Multiple colonic diverticula are noted. There is no evidence of free air nor free fluid. There is some thickening of the urinary bladder wall with decompression. Multiple brachii therapy seeds are seen within the prostate. The appendix is normal. Degenerative changes of the lumbar spine are noted. Facet hypertrophy is seen. There is a subcentimeter hypodensity within the liver too small to characterize. The gallbladder is unremarkable. The spleen, adrenals, pancreas and kidneys are unremarkable. Impression: Contained perforation of acute sigmoid diverticulitis. Dictated By: 07/25/17 1244 LISSETTE MAHARAJ MD. Signed By: 07/25/17 1254 LISSETTE MAHARAJ MD. Patient Problems - Patient Problem List (1) Diverticulitis of large intestine with perforation and abscess Current Visit: Yes Status: Acute Code(s): K57.20 - Diverticulitis of large intestine with perforation and abscess without bleeding Qualifiers: Diverticulitis bleeding: without bleeding Qualified Code(s): K57.20 - Diverticulitis of large intestine with perforation and abscess without bleeding Category: Medical (2) BPH (benign prostatic hyperplasia) Current Visit: Yes Status: Acute Code(s): N40.0 - Benign prostatic hyperplasia without lower urinary tract symptoms Qualifiers: Lower urinary tract symptom presence: unspecified whether lower urinary tract symptoms present Qualified Code(s): N40.0 - Benign prostatic hyperplasia without lower urinary tract symptoms Category: Medical (3) Anemia, macrocytic Current Visit: Yes Status: Chronic Code(s): D53.9 - Nutritional anemia, unspecified Category: Medical (4) Vitamin D deficiency Current Visit: Yes Status: Chronic Code(s): E55.9 - Vitamin D deficiency, unspecified Category: Medical (5) Monoclonal B-cell lymphocytosis of undetermined significance Current Visit: Yes Status: Chronic Code(s): D72.820 - Lymphocytosis ( symptomatic) Category: Medical
[2017-07-27] MEDS: Ertapenem Inj 1 GM in Sodium Chloride 0.9% 100 ML IV SCH (14:28)
[2017-07-27] MEDS: NORMAL SALINE 10 ML SYRINGE FLUSH IVP PRN (14:28)
== END 2017-07-27 15:43 | disposition home or self-care (01) | DRG 392 ==
LOC: ER 10:59 → MED/SURG 13:41
PROVIDERS: ADMIT Internal Medicine; ATTEND Internal Medicine